=== PATIENT | female | born 2000 | race Caucasian/White ===

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

== ENCOUNTER 2022-07-18 08:36 | Day surgery (SDC) | payer BC, MEDICAID ==
[~2022-07-18 08:36] MED LIST changes: -Bupivacaine 0.25% 10 ML SDV ONE; +EPINEPHrine 1 MG/ML 30 ML MDV IRR SCH; +Lidocaine 1% 2 ML ONE; +Midazolam 1 MG/ML 2 ML SDV ONE; +Propofol 200 MG/20 ML SDV ONE; +fentaNYL 100 MCG/2 ML SDV ONE
[2022-07-18] MEDS ORDERED: Bupivacaine 0.25% 10 ML SDV ONE (08:49)
[2022-07-18] MEDS ORDERED: ceFAZolin 2 GM Vial ONE (09:29)
[2022-07-18] MEDS ORDERED: Ondansetron 4 MG/2 ML SDV ONE (10:04)
[2022-07-18] MEDS ORDERED: Ketorolac 30 MG/ML SDV ONE (10:04)
[2022-07-18] MEDS ORDERED: Ondansetron 4 MG/2 ML SDV IVPUSH PRN (10:25)
[2022-07-18] MEDS ORDERED: HYDROmorphone 0.5 MG/0.5 ML Syringe IVPUSH PRN (10:25)
[2022-07-18] MEDS ORDERED: fentaNYL 100 MCG/2 ML SDV IVPUSH PRN (10:25)
[2022-07-18] MEDS ORDERED: Acetaminophen/HYDROcodone 325-5 MG Tab PO SCH (10:51)
[2022-07-18 12:16] VITALS: BP 110/67; PULSE 66
== END 2022-07-18 11:55 | disposition home or self-care (01) ==
LOC: JD.SDS 08:36
PROVIDERS: ATTEND Orthopaedic Surgery
DX: S83.242A Other tear of medial meniscus, current injury, left knee, initial encounter (principal); G89.29 Other chronic pain; F41.9 Anxiety disorder, unspecified; F32.A Depression, unspecified; K21.9 Gastro-esophageal reflux disease without esophagitis; Q21.10 Atrial septal defect, unspecified; Z88.0 Allergy status to penicillin; Z79.899 Other long term (current) drug therapy
CPT/HCPCS: 29881; 81025; J0171; J0690; J1885; J2250; J2405; J2704; J3010; J3490; J7120; 01400

== ENCOUNTER 2023-02-03 22:56 | Emergency (ER) | payer BC, MEDICAID ==
[2023-02-03 23:14] VITALS: PULSE 133
[2023-02-03] MEDS ORDERED: Sodium Chloride 0.9% 10 ML Syringe FLUSH PRN (23:20)
[2023-02-03 23:51] LABS: BASOPHILS PERCENT AUTO 0.2 % (0.0-1.0); EOSINOPHILS PERCENT AUTO 0.3 % (0.0-6.0); HEMATOCRIT 38.2 % (37.0-47.0); HEMOGLOBIN 13.1 gm/dl (12.0-16.0); IMMATURE GRAN ABSOLUTE AUTO 0.04 K/mm3 (0.00-0.05); IMMATURE GRAN PERCENT AUTO 0.3 % (0.0-0.4); LYMPHOCYTES PERCENT AUTO 17.4 % (24.0-44.0); MEAN CORPUSCULAR HEMOGLOBIN 29.8 pg (28.0-32.0); MEAN CORPUSCULAR HGB CONC 34.3 g/dl (32.0-36.0); MEAN PLATELET VOLUME 10.1 fl (9.4-12.3); NEUTROPHILS ABSOLUTE AUTO 8.3 K/mm3 (1.8-7.7); NEUTROPHILS PERCENT AUTO 72.8 % (41.0-71.0); PLATELET COUNT,PLT 259 K/mm3 (150-400); RED BLOOD CELL COUNT 4.39 M/mm3 (4.10-5.30); WHITE BLOOD CELL COUNT,WBC 11.45 K/mm3 (3.9-11.3)
[2023-02-04 00:05] LABS: INFLUENZA A NAA NEGATIVE (NEGATIVE); RESPIRATORY SYNCYTIAL VIR NAA NEGATIVE (NEGATIVE)
[2023-02-04 00:16] LABS: CORONAVIRUS COVID-19 NAA POSITIVE (NEGATIVE)
[2023-02-04 00:17] LABS: APPEARANCE,URINE CLEAR (Clear); BILIRUBIN,URINE NEGATIVE (Negative); COLOR,URINE YELLOW (Yellow); GLUCOSE,URINE NEGATIVE (Negative); KETONES,URINE NEGATIVE (Negative); LEUKOCYTE ESTERASE,URINE TRACE (Negative); NITRITE,URINE NEGATIVE (Negative); OCCULT BLOOD,URINE NEGATIVE (Negative); PH,URINE 8.5 (5.0-8.0); PROTEIN,URINE NEGATIVE (Negative); UROBILINOGEN,URINE 0.2 (0.2-1.0)
[2023-02-04 00:20] LABS: A/G RATIO 0.9 (1-2); ALBUMIN 3.6 g/dl (3.4-5.0); ANION GAP 14.4 (5-15); BILIRUBIN TOTAL 0.6 mg/dL (0.2-1.0); C-REACTIVE PROTEIN 8.4 mg/dL (<1.0); CALCIUM 8.8 mg/dL (8.5-10.1); CREATININE 0.9 mg/dL (0.55-1.02); EST CRCL DRUG DOSING (CG) 107.6 mL/min; MAGNESIUM 1.7 mg/dL (1.8-2.4); POTASSIUM,K 3.4 mEq/L (3.5-5.1); PROTEIN TOTAL,TP 7.6 g/dl (6.4-8.2)
[2023-02-04 00:24] LABS: EPITHELIAL CELLS,URINE 0-5 /hpf (0-5); RBC,URINE 0-5 /hpf (0-5); WBC,URINE 0-5 /hpf (0-5)
[2023-02-04 00:25] LABS: BACTERIA,URINE FEW /hpf (FEW); MUCUS,URINE NOT SEEN /hpf (FEW)
[2023-02-04 00:43] VITALS: BP 123/85
== END 2023-02-04 00:34 | disposition home or self-care (01) ==
LOC: JD.ED 22:56
DX: U07.1 COVID-19 (principal); Z88.0 Allergy status to penicillin
CPT/HCPCS: 0241U; 36415; 71046; 80053; 81001; 83605; 83735; 84484; 85025; 86140; 93005; 99285; 93010; 99282

== ENCOUNTER 2023-02-20 19:39 | Emergency (ER) | payer BC ==
[2023-02-20] MEDS ORDERED: Diclofenac Sodium 1% Gel 100 GM Tube TOP ONE (20:02)
[2023-02-20 20:28] LABS: BASOPHILS PERCENT AUTO 0.5 % (0.0-1.0); EOSINOPHILS ABSOLUTE AUTO 0.2 K/mm3 (0.0-0.4); EOSINOPHILS PERCENT AUTO 1.8 % (0.0-6.0); HEMATOCRIT 35.5 % (37.0-47.0); IMMATURE GRAN ABSOLUTE AUTO 0.02 K/mm3 (0.00-0.05); IMMATURE GRAN PERCENT AUTO 0.2 % (0.0-0.4); LYMPHOCYTES ABSOLUTE AUTO 3.3 K/mm3 (1.0-4.8); LYMPHOCYTES PERCENT AUTO 39.5 % (24.0-44.0); MEAN CORPUSCULAR HEMOGLOBIN 29.6 pg (28.0-32.0); MEAN CORPUSCULAR HGB CONC 33.8 g/dl (32.0-36.0); MEAN CORPUSCULAR VOLUME 87.4 fl (83.0-99.0); MEAN PLATELET VOLUME 9.7 fl (9.4-12.3); MONOCYTES ABSOLUTE AUTO 0.7 K/mm3 (0.0-0.8); MONOCYTES PERCENT AUTO 7.9 % (0.0-8.0); NEUTROPHILS ABSOLUTE AUTO 4.2 K/mm3 (1.8-7.7); NEUTROPHILS PERCENT AUTO 50.1 % (41.0-71.0); PLATELET COUNT,PLT 374 K/mm3 (150-400); RED BLOOD CELL COUNT 4.06 M/mm3 (4.10-5.30); WHITE BLOOD CELL COUNT,WBC 8.37 K/mm3 (3.9-11.3)
[2023-02-20 21:00] LABS: A/G RATIO 0.9 (1-2); ALBUMIN 3.5 g/dl (3.4-5.0); ANION GAP 15.7 (5-15); BILIRUBIN TOTAL 0.4 mg/dL (0.2-1.0); BUN/CREATININE RATIO 17.5 (14-18); C-REACTIVE PROTEIN 1.4 mg/dL (<1.0); CALCIUM 8.7 mg/dL (8.5-10.1); CREATININE 0.8 mg/dL (0.55-1.02); EST CRCL DRUG DOSING (CG) 120.48 mL/min; POTASSIUM,K 3.7 mEq/L (3.5-5.1); PROTEIN TOTAL,TP 7.5 g/dl (6.4-8.2)
[2023-02-20] MEDS ORDERED: Ketorolac 60 MG/2 ML SDV IM ONE (21:23)
[2023-02-20 22:57] VITALS: BP 113/77; PULSE 78
== END 2023-02-20 21:45 | disposition home or self-care (01) ==
LOC: JD.ED 19:39
DX: M94.0 Chondrocostal junction syndrome [Tietze] (principal); Z79.899 Other long term (current) drug therapy; Z88.0 Allergy status to penicillin
CPT/HCPCS: 36415; 80053; 84703; 85025; 85379; 86140; 96372; 99284; A9270; J1885

== ENCOUNTER 2023-12-10 10:24 | Emergency (ER) | payer BC ==
[2023-12-10 11:33] LABS: A/G RATIO 1.1 (1-2); ALBUMIN 3.9 g/dl (3.4-5.0); ANION GAP 15.1 (5-15); BILIRUBIN TOTAL 0.7 mg/dL (0.2-1.0); BUN/CREATININE RATIO 6.7 (14-18); C-REACTIVE PROTEIN 0.25 mg/dL (<0.30); CALCIUM 8.8 mg/dL (8.5-10.1); CREATININE 0.9 mg/dL (0.55-1.02); EST CRCL DRUG DOSING (CG) 114.11 mL/min; POTASSIUM,K 3.1 mEq/L (3.5-5.1); PROTEIN TOTAL,TP 7.5 g/dl (6.4-8.2)
[2023-12-10 11:40] LABS: BASOPHILS PERCENT AUTO 0.4 % (0.0-1.0); EOSINOPHILS ABSOLUTE AUTO 0.1 K/mm3 (0.0-0.4); HEMOGLOBIN 12.4 gm/dl (12.0-16.0); IMMATURE GRAN ABSOLUTE AUTO 0.03 K/mm3 (0.00-0.05); IMMATURE GRAN PERCENT AUTO 0.4 % (0.0-0.4); LYMPHOCYTES ABSOLUTE AUTO 1.4 K/mm3 (1.0-4.8); LYMPHOCYTES PERCENT AUTO 19.1 % (24.0-44.0); MEAN CORPUSCULAR HEMOGLOBIN 29.7 pg (28.0-32.0); MEAN CORPUSCULAR HGB CONC 32.6 g/dl (32.0-36.0); MEAN CORPUSCULAR VOLUME 90.9 fl (83.0-99.0); MEAN PLATELET VOLUME 10.7 fl (9.4-12.3); MONOCYTES ABSOLUTE AUTO 0.6 K/mm3 (0.0-0.8); MONOCYTES PERCENT AUTO 7.7 % (0.0-8.0); NEUTROPHILS ABSOLUTE AUTO 5.1 K/mm3 (1.8-7.7); NEUTROPHILS PERCENT AUTO 71.4 % (41.0-71.0); RED BLOOD CELL COUNT 4.18 M/mm3 (4.10-5.30); WHITE BLOOD CELL COUNT,WBC 7.16 K/mm3 (3.9-11.3)
[2023-12-10 11:45] LABS: LACTIC ACID 2.3 mmol/L (0.4-2.0)
[2023-12-10] MEDS: Sodium Chloride 0.9% 1,000 ML IV SCH (11:45)
[2023-12-10] MEDS: Ondansetron 4 MG/2 ML SDV IVPUSH ONE (11:45)
[2023-12-10 11:47] LABS: PLATELET COUNT,PLT 292 K/mm3 (150-400)
[2023-12-10 11:56] LABS: APPEARANCE,URINE CLEAR (Clear); BILIRUBIN,URINE NEGATIVE (Negative); COLOR,URINE YELLOW (Yellow); GLUCOSE,URINE NEGATIVE (Negative); KETONES,URINE NEGATIVE (Negative); LEUKOCYTE ESTERASE,URINE NEGATIVE (Negative); NITRITE,URINE NEGATIVE (Negative); OCCULT BLOOD,URINE TRACE-LYSED (Negative); PROTEIN,URINE NEGATIVE (Negative); UROBILINOGEN,URINE 0.2 (0.2-1.0)
[2023-12-10 12:04] LABS: EPITHELIAL CELLS,URINE 0-5 /hpf (0-5); RBC,URINE 0-5 /hpf (0-5); WBC,URINE 0-5 /hpf (0-5)
[2023-12-10 12:05] LABS: BACTERIA,URINE FEW /hpf (FEW); MUCUS,URINE FEW /hpf (FEW)
[2023-12-10] MEDS: Iopamidol 612 MG/ML 100 ML Bottle IVPUSH ONE (12:26)
[2023-12-10] MEDS: Sodium Chloride 0.9% 10 ML Syringe FLUSH ONE (12:26)
[2023-12-10] MEDS: Potassium Chloride 10 MEQ Tab.ER PO ONE (12:45)
[2023-12-10] MEDS: Lactated Ringers 1,000 ML IV SCH (12:54)
[2023-12-10 14:17] VITALS: BP 118/83; PULSE 69
== END 2023-12-10 14:15 | disposition home or self-care (01) ==
LOC: JD.ED 10:24
DX: R10.11 Right upper quadrant pain (principal); R11.2 Nausea with vomiting, unspecified; J45.909 Unspecified asthma, uncomplicated; Z86.16 Personal history of COVID-19; Z88.0 Allergy status to penicillin
CPT/HCPCS: 36415; 74177; 80053; 81001; 81025; 83605; 83690; 85025; 86140; 96361; 96374; 99284; A9270; J2405; J3490; J7030; J7120; Q9967

== ENCOUNTER 2023-12-30 07:57 | Day surgery (SDC) | payer BC ==
[~2023-12-30 07:57] MED LIST changes: -EPINEPHrine 1 MG/ML 30 ML MDV IRR SCH; -Lactated Ringers 1,000 ML IV SCH; -Lidocaine 1% 2 ML ONE; +Lidocaine 1% 4 ML ONE; -Lidocaine 1%/Sod Bicarbonate in NS 8.4% 1 ML Syringe IDERM PRN; -fentaNYL 100 MCG/2 ML SDV ONE
[2023-12-30] MEDS: Lactated Ringers 1,000 ML IV SCH (08:25)
[2023-12-30 11:00] VITALS: BP 104/62; PULSE 72
== END 2023-12-30 10:27 | disposition home or self-care (01) ==
LOC: JD.SDS 07:57
PROVIDERS: ATTEND Surgery
DX: R10.9 Unspecified abdominal pain (principal); K44.9 Diaphragmatic hernia without obstruction or gangrene; G89.29 Other chronic pain; K21.9 Gastro-esophageal reflux disease without esophagitis; F41.9 Anxiety disorder, unspecified; F32.A Depression, unspecified; Z87.891 Personal history of nicotine dependence; Z79.899 Other long term (current) drug therapy; Z88.0 Allergy status to penicillin
CPT/HCPCS: 43239; 81025; J2250; J2704; J7120; 00731; J3490

== ENCOUNTER 2024-01-16 00:57 | Emergency (ER) | payer BC ==
[2024-01-16 01:04] VITALS: BP 137/96; PULSE 94
== END 2024-01-16 01:37 | disposition home or self-care (01) ==
LOC: JD.ED 00:57
DX: O99.611 Diseases of the digestive system complicating pregnancy, first trimester (principal); K06.9 Disorder of gingiva and edentulous alveolar ridge, unspecified; J45.909 Unspecified asthma, uncomplicated; Z86.16 Personal history of COVID-19; Z88.0 Allergy status to penicillin; Z79.51 Long term (current) use of inhaled steroids; Z3A.01 Less than 8 weeks gestation of pregnancy
CPT/HCPCS: 99282

== ENCOUNTER 2024-01-20 15:36 | Emergency (ER) | payer BC ==
[2024-01-20 15:44] VITALS: BP 118/80; PULSE 82
== END 2024-01-20 16:11 | disposition left against medical advice (07) ==
LOC: JD.ED 15:36
DX: Z53.21 Procedure and treatment not carried out due to patient leaving prior to being seen by health care provider (principal)

== ENCOUNTER 2024-03-13 12:00 | Emergency (ER) | payer BC | END 2024-03-13 12:44 | disposition left against medical advice (07) | LOC: JD.ED 12:00 | DX: Z53.21 Procedure and treatment not carried out due to patient leaving prior to being seen by health care provider (principal) ==

== ENCOUNTER 2024-04-04 14:04 | Emergency (ER) | payer BC ==
[2024-04-04 14:16] VITALS: BP 131/91
[2024-04-04 14:46] LABS: BASOPHILS ABSOLUTE AUTO 0.1 K/mm3 (0.0-0.2); BASOPHILS PERCENT AUTO 0.6 % (0.0-1.0); EOSINOPHILS ABSOLUTE AUTO 0.1 K/mm3 (0.0-0.4); EOSINOPHILS PERCENT AUTO 0.9 % (0.0-6.0); HEMATOCRIT 38.2 % (37.0-47.0); HEMOGLOBIN 12.5 gm/dl (12.0-16.0); IMMATURE GRAN ABSOLUTE AUTO 0.02 K/mm3 (0.00-0.05); IMMATURE GRAN PERCENT AUTO 0.2 % (0.0-0.4); LYMPHOCYTES PERCENT AUTO 12.3 % (24.0-44.0); MEAN CORPUSCULAR HEMOGLOBIN 29.6 pg (28.0-32.0); MEAN CORPUSCULAR HGB CONC 32.7 g/dl (32.0-36.0); MEAN CORPUSCULAR VOLUME 90.5 fl (83.0-99.0); MONOCYTES ABSOLUTE AUTO 0.8 K/mm3 (0.0-0.8); MONOCYTES PERCENT AUTO 9.8 % (0.0-8.0); NEUTROPHILS ABSOLUTE AUTO 6.4 K/mm3 (1.8-7.7); NEUTROPHILS PERCENT AUTO 76.2 % (41.0-71.0); PLATELET COUNT,PLT 254 K/mm3 (150-400); RED BLOOD CELL COUNT 4.22 M/mm3 (4.10-5.30); WHITE BLOOD CELL COUNT,WBC 8.44 K/mm3 (3.9-11.3)
[2024-04-04 15:15] LABS: A/G RATIO 1.2 (1-2); ALBUMIN 4.3 g/dl (3.4-5.0); ANION GAP 10.7 (5-15); BILIRUBIN TOTAL 0.7 mg/dL (0.2-1.0); BUN/CREATININE RATIO 11.3 (14-18); CALCIUM 9.2 mg/dL (8.5-10.1); CREATININE 0.8 mg/dL (0.55-1.02); EST CRCL DRUG DOSING (CG) 122.75 mL/min; POTASSIUM,K 3.7 mEq/L (3.5-5.1); PROTEIN TOTAL,TP 7.9 g/dl (6.4-8.2)
[2024-04-04 18:04] VITALS: PULSE 78
== END 2024-04-04 18:02 | disposition home or self-care (01) ==
LOC: JD.ED 14:04
DX: O26.851 Spotting complicating pregnancy, first trimester (principal); O02.81 Inappropriate change in quantitative human chorionic gonadotropin (hCG) in early pregnancy; Z86.16 Personal history of COVID-19; Z88.0 Allergy status to penicillin; Z79.51 Long term (current) use of inhaled steroids; Z79.899 Other long term (current) drug therapy; Z3A.01 Less than 8 weeks gestation of pregnancy
CPT/HCPCS: 36415; 76817; 76817-26; 80053; 84702; 85025; 99283; 99284

== ENCOUNTER 2024-08-18 11:17 | Emergency (ER) | payer OTHER, BC ==
[2024-08-18] MEDS ORDERED: Naloxone 0.4 MG/ML SDV IVPUSH PRN (11:23)
[2024-08-18] MEDS: Ondansetron 4 MG/2 ML SDV IVPUSH ONE ×4 (11:25→14:04)
[2024-08-18] MEDS: HYDROmorphone 1 MG/ML Syringe IVPUSH ONE (11:26)
[2024-08-18] MEDS: Sodium Chloride 0.9% 1,000 ML IV SCH (11:47)
[2024-08-18 11:48] LABS: BASOPHILS PERCENT AUTO 0.6 % (0.0-1.0); EOSINOPHILS ABSOLUTE AUTO 0.1 K/mm3 (0.0-0.4); EOSINOPHILS PERCENT AUTO 1.2 % (0.0-6.0); HEMATOCRIT 36.4 % (37.0-47.0); IMMATURE GRAN ABSOLUTE AUTO 0.02 K/mm3 (0.00-0.05); IMMATURE GRAN PERCENT AUTO 0.3 % (0.0-0.4); LYMPHOCYTES PERCENT AUTO 30.6 % (24.0-44.0); MEAN CORPUSCULAR HEMOGLOBIN 29.7 pg (28.0-32.0); MEAN CORPUSCULAR VOLUME 90.1 fl (83.0-99.0); MEAN PLATELET VOLUME 10.8 fl (9.4-12.3); MONOCYTES ABSOLUTE AUTO 0.7 K/mm3 (0.0-0.8); MONOCYTES PERCENT AUTO 11.3 % (0.0-8.0); NEUTROPHILS ABSOLUTE AUTO 3.7 K/mm3 (1.8-7.7); PLATELET COUNT,PLT 276 K/mm3 (150-400); RED BLOOD CELL COUNT 4.04 M/mm3 (4.10-5.30); WHITE BLOOD CELL COUNT,WBC 6.53 K/mm3 (3.9-11.3)
[2024-08-18] MEDS: HYDROmorphone 1 MG/ML Syringe ONE (11:52)
[2024-08-18] MEDS: Ondansetron 4 MG/2 ML SDV ONE (11:53)
[2024-08-18] MEDS: Iopamidol 612 MG/ML 30 ML SDV IVPUSH ONE (11:58)
[2024-08-18] MEDS: Iopamidol 612 MG/ML 100 ML Bottle IVPUSH ONE (11:59)
[2024-08-18] MEDS: Sodium Chloride 0.9% 10 ML Syringe FLUSH PRN (11:59)
[2024-08-18 12:01] LABS: INR 1.04
[2024-08-18] MEDS: Metoclopramide 10 MG/2 ML SDV IVPUSH ONE (12:04)
[2024-08-18 12:05] LABS: A/G RATIO 1.2 (1-2); ALBUMIN 3.9 g/dl (3.4-5.0); ANION GAP 13.7 (5-15); BILIRUBIN TOTAL 0.4 mg/dL (0.2-1.0); BUN/CREATININE RATIO 16.3 (14-18); CALCIUM 8.6 mg/dL (8.5-10.1); CREATININE 0.8 mg/dL (0.55-1.02); EST CRCL DRUG DOSING (CG) 123.46 mL/min; POTASSIUM,K 3.7 mEq/L (3.5-5.1); PROTEIN TOTAL,TP 7.2 g/dl (6.4-8.2)
[2024-08-18] MEDS: Metoclopramide 10 MG/2 ML SDV ONE (12:58)
[2024-08-18 14:37] VITALS: BP 117/70; PULSE 70
== END 2024-08-18 14:08 | disposition home or self-care (01) ==
LOC: JD.ED 11:17
DX: S16.1XXA Strain of muscle, fascia and tendon at neck level, initial encounter (principal); S39.012A Strain of muscle, fascia and tendon of lower back, initial encounter; S29.012A Strain of muscle and tendon of back wall of thorax, initial encounter; J45.909 Unspecified asthma, uncomplicated; K21.9 Gastro-esophageal reflux disease without esophagitis; Z86.16 Personal history of COVID-19; Z79.899 Other long term (current) drug therapy; Z88.0 Allergy status to penicillin; V49.40XA Driver injured in collision with unspecified motor vehicles in traffic accident, initial encounter; Y92.410 Unspecified street and highway as the place of occurrence of the external cause
CPT/HCPCS: 36415; 70450; 71045; 71260; 72125; 72128; 72131; 72170; 74177; 80053; 80307; 82550; 83735; 85025; 85610; 86850; 86900; 86901; 93005; 96374; 96375; 96376; 99285; J1171; J2405; J2765; J7030; Q9967; 93010; 99284

== ENCOUNTER 2024-12-06 17:16 | Emergency (ER) | payer BC ==
[2024-12-06] MEDS: Ondansetron 4 MG/2 ML SDV IV STA (18:26)
[2024-12-06 18:29] LABS: BASOPHILS ABSOLUTE AUTO 0.0 K/mm3 (0.0-0.2); BASOPHILS PERCENT AUTO 0.5 % (0.0-1.0); EOSINOPHILS ABSOLUTE AUTO 0.2 K/mm3 (0.0-0.4); EOSINOPHILS PERCENT AUTO 2.0 % (0.0-6.0); IMMATURE GRAN ABSOLUTE AUTO 0.02 K/mm3 (0.00-0.05); IMMATURE GRAN PERCENT AUTO 0.3 % (0.0-0.4); LYMPHOCYTES ABSOLUTE AUTO 2.4 K/mm3 (1.0-4.8); LYMPHOCYTES PERCENT AUTO 32.4 % (24.0-44.0); MEAN PLATELET VOLUME 11.2 fl (9.4-12.3); MONOCYTES ABSOLUTE AUTO 0.7 K/mm3 (0.0-0.8); MONOCYTES PERCENT AUTO 10.0 % (0.0-8.0); NEUTROPHILS ABSOLUTE AUTO 4.1 K/mm3 (1.8-7.7); NEUTROPHILS PERCENT AUTO 54.8 % (41.0-71.0); NRBC ABSOLUTE 0.00 (0.00-0.02); NRBC PERCENT 0.0 % (0.0-0.2); PLATELET COUNT,PLT 215 K/mm3 (150-400); RED BLOOD CELL COUNT 4.10 M/mm3 (4.10-5.30); WHITE BLOOD CELL COUNT,WBC 7.40 K/mm3 (3.9-11.3)
[2024-12-06 18:52] LABS: A/G RATIO 1.2 (1-2); ALANINE AMINOTRANSFERASE,ALT 19 U/L (14-59); ASPARTATE AMNIOTRANSFERASE,AST 12 U/L (15-37); BILIRUBIN TOTAL 0.5 mg/dL (0.2-1.0); BLOOD UREA NITROGEN,BUN 10 mg/dL (7-18); CARBON DIOXIDE,CO2 26 mEq/L (21-32); CHLORIDE,CL 105 mEq/L (98-107); CREATINE KINASE,CK 84 U/L (26-192); CREATININE 0.7 mg/dL (0.55-1.02); ESTIMATED GFR 125 mL/min (>60); GLUCOSE RANDOM 86 mg/dL (70-99); POTASSIUM,K 3.4 mEq/L (3.5-5.1); PROTEIN TOTAL,TP 7.2 g/dl (6.4-8.2); SODIUM,NA 140 mEq/L (136-145)
[2024-12-06 19:39] LABS: APPEARANCE,URINE CLEAR (Clear); GLUCOSE,URINE NEGATIVE (Negative); OCCULT BLOOD,URINE NEGATIVE (Negative)
[2024-12-06 19:48] LABS: EPITHELIAL CELLS,URINE 0-5 /hpf (0-5)
[2024-12-06 19:55] LABS: BUPRENORPHINE SCREEN,URINE NEGATIVE (CUTOFF=10); METHADONE SCREEN, URINE NEGATIVE (CUTOFF=200); METHAMPHETAMINES SCREEN, URINE NEGATIVE (CUTOFF=500); OXYCODONE SCREEN,URINE NEGATIVE (CUT0FF=100); THC SCREEN,URINE 20 NG/ML NEGATIVE (CUTOFF=50)
[2024-12-06 19:56] LABS: AMPHETAMINES SCREEN, URINE NEGATIVE (CUTOFF=500)
[2024-12-06 20:41] VITALS: PULSE 63
[2024-12-06 21:10] VITALS: BP 112/77
== END 2024-12-06 21:09 | disposition home or self-care (01) ==
LOC: JD.ED 17:16
DX: O20.9 Hemorrhage in early pregnancy, unspecified (principal); Z3A.01 Less than 8 weeks gestation of pregnancy; Z79.899 Other long term (current) drug therapy; Z88.0 Allergy status to penicillin; Z86.16 Personal history of COVID-19
CPT/HCPCS: 36415; 76817; 76817-26; 80053; 80306; 81001; 82550; 83690; 83735; 84702; 85025; 96361; 96374; 99283; 99284-25; A9270-GY; J2405; J7030